=== PATIENT | female | born 1950 | race Caucasian/White ===

== ENCOUNTER → 2016-07-18 | Outpatient (CLI) | payer OTHER | LOC: BMCIMAGING 09:40 | PROVIDERS: ATTEND Family Medicine | DX: M23.42 Loose body in knee, left knee (principal); M25.462 Effusion, left knee ==

== ENCOUNTER → 2018-07-13 | Outpatient (CLI) | payer OTHER | LOC: FIMAGING 08:58 ==

== ENCOUNTER → 2018-07-18 | Outpatient (CLI) | payer OTHER | LOC: FIMAGING 09:18 ==